=== PATIENT | male | born 1955 | race Caucasian/White ===

== ENCOUNTER 2018-07-01 09:13 | Observation (INO) | payer BC ==
[2018-06-30 16:13] LABS: BASOPHILS # (AUTO) 0.1 (0.0-0.1); BASOPHILS % 0.5 % (0.0-1.0); EOSINOPHILS # (AUTO) 0.5 (0.0-0.4); EOSINOPHILS % 3.2 % (0.0-6.0); HEMATOCRIT 39.1 % (38.2-49.6); HEMOGLOBIN 13.4 g/dL (14.0-18.0); LYMPHOCYTES # (AUTO) 3.8 (1.0-3.2); LYMPHOCYTES % 26.4 % (18.0-39.1); MEAN CORPUSCULAR HEMOGLOBIN 32.6 pg (28-32); MEAN CORPUSCULAR HGB CONC 34.3 g/dL (31-35); MEAN CORPUSCULAR VOLUME 95.1 fL (81-99); MONOCYTES # (AUTO) 1.4 (0.2-0.8); MONOCYTES % 9.3 % (4.4-11.3); NEUTROPHILS # (AUTO) 8.8 (2.1-6.9); NEUTROPHILS % 60.3 % (38.7-80.0); PLATELET COUNT 332 x10e3/uL (140-360); RED BLOOD COUNT 4.11 x10e6/uL (4.3-5.7)
[2018-06-30 16:30] LABS: ANION GAP 15.6 mmol/L (8-16); BLOOD UREA NITROGEN 16 mg/dL (7-26); BUN/CREATININE RATIO 14 (6-25); CALCIUM 9.9 mg/dL (8.4-10.2); CARBON DIOXIDE 28 mmol/L (22-29); CHLORIDE 101 mmol/L (98-107); CREATININE, SERUM 1.16 mg/dL (0.72-1.25); EST GLOMERULAR FILTRATION RATE > 60 ML/MIN (60-); GLUCOSE 99 mg/dL (74-118); POTASSIUM 4.6 mmol/L (3.5-5.1); SODIUM 140 mmol/L (136-145)
[2018-06-30 16:32] LABS: INR 0.89; PROTHROMBIN TIME 12.9 seconds (11.9-14.5)
[2018-06-30 16:33] LABS: PARTIAL THROMBOPLASTIN TIME 31.5 seconds (23.8-35.5)
--- NOTE | 2018-06-30 16:57 | Diagnostic Imaging Report ---
EXAMINATION: CHEST 2 VIEWS COMPARISON: None FINDINGS: TUBES and LINES: None. LUNGS: Lungs are well inflated. Lungs are clear. There is no evidence of pneumonia or pulmonary edema. PLEURA: No pleural effusion or pneumothorax. HEART AND MEDIASTINUM: The cardiomediastinal silhouette is unremarkable. BONES AND SOFT TISSUES: No acute osseous lesion. Soft tissues are unremarkable. UPPER ABDOMEN: No free air under the diaphragm. IMPRESSION: No acute radiographic abnormality. Signed by: Dr. Paz Noyola MD on 06/30/2018 4:54 PM
[~2018-07-01] VITALS: Ht 167.6 cm; Wt 83.9 kg
[~2018-07-01 09:13] MED LIST: ACETAMINOPHEN 1000 MG/100 ML 100 ML IV ONE; LIDOCAINE HCL (LTA) 4 ML SOLN ONE; MEN'S ONE DAIL1 EACH PO; NORCO 5-325 TA1 EACH PO
--- OUTSIDE RECORDS SUMMARY | 2018-07-01 09:16 | XMS REPORT | Clinical Summary ---
Author Author [facility] Organization [facility] Address Unknown Phone Unavailable Care Team Providers Care Office Administration Name Role Phone Asked, No Pcp PCP Unavailable Allergies No Known Allergies Medications End Date Status Medication Sig Dispensed Refills Start Date Active ranitidine (ZANTAC) 300 0 MG tablet 7 Active zolpidem (AMBIEN) 5 MG TK 1 T PO QHS 3 tablet 7 Active Problems No known active problems Social History Date Tobacco Use Types Packs/Day Years Used Current Every Day Smoker Cigarettes 1 Alcohol Use Drinks/Week oz/Week Comments No Sex Assigned at Date Recorded Not on file Industry Job Start Date Occupation Not on file Not on file Not on file Travel End Travel History Travel Start No recent travel history available. Last Filed Vital Signs Not on file Plan of Treatment Health Maintenance Due Date Last Done Comments COLON CANCER SCREENING 2004 SHINGRIX VACCINE (1 of 2) 2004 ZOSTER VACCINE 2014 INFLUENZA VACCINE 02/17/2018 Results Not on fileafter 06/30/2017 Insurance Payer Benefit Subscriber ID Type Phone Address Plan / Group AETNA AETNA PPO xxxxxxxxxx PPO OPEN CHOICE Advance Directives Patient has advance care planning documents on file. For more information, edmundo morrison contact: [facility] [address] [place] [address]
--- OUTSIDE RECORDS SUMMARY | 2018-07-01 09:16 | XMS REPORT ---
Author Author [facility] Address Unknown Phone Unavailable Care Team Providers Care Tree Tapping Laborer Name Role Phone ALIA BERRY Unavailable Unavailable Problems This patient has no known problems. Allergies, Adverse Reactions, Alerts This patient has no known allergies or adverse reactions. Medications This patient has no known medications. Results Test Description Test Time Test Comments Text Results Atomic Results Result Comments CHEST 2 VIEWS 2018-06-30 16:52:00 [place] [address] Patient Name: CHUCKIE GARCIA MR #: [id number] : 1955 Age/Sex: 62/M Req #: [id number] [facility] Physician: Ordered by: ALIA BERRY MD Report #: [id number] Location: OR Room/Bed: Procedure: [id number] DX/CHEST 2 VIEWS Exam Date: 06/30/18 Exam Time: 1609 REPORT STATUS: Signed EXAMINATION: CHEST 2 VIEWS COMPARISON: None FINDINGS: TUBES and LINES: None. LUNGS: Lungs are well inflated. Lungs are clear. There is no evidence of pneumonia or pulmonary edema. PLEURA: No pleural effusion or pneumothorax. HEART AND MEDIASTINUM: The cardiomediastinal silhouette is unremarkable. BONES AND SOFT TISSUES: No acute osseous lesion. Soft tissues are unremarkable. UPPER ABDOMEN: No free air under the diaphragm. IMPRESSION: No acute radiographic abnormality. Signed by: Dr. Rubina Huitron MD on 06/30/2018 4:54 PM Dictated By: RUBINA HUITRON MD 53 Transcribed By: JOHANN on 06/30/181653 COPY TO: ALIA BERRY MD
[2018-07-01] MEDS ORDERED: CEFAZOLIN SOD 2 GM/D5W 50ML 50 ML IV ONE (09:51)
[2018-07-01] MEDS ORDERED: BACITRACIN 50,000 UNIT VIAL ONE (11:09)
[2018-07-01] MEDS ORDERED: THROMBIN FOR SOLN 5,000 UNIT VIAL ONE (11:09)
[2018-07-01] MEDS ORDERED: BUPIVACAINE 0.5%/EPI 30 ML SDV INJ ONE (11:09)
[2018-07-01] MEDS ORDERED: GELATIN SPONGE 12-7MM ONE (11:09)
[2018-07-01] MEDS ORDERED: CEPACOL SORE THROAT LOZENGES PO PRN (13:45)
[2018-07-01] MEDS ORDERED: ZOLPIDEM TARTRATE 5 MG TAB PO PRN (13:45)
[2018-07-01] MEDS ORDERED: HYDROMORPHONE 2MG/ML 2 MG/ML ML IV PRN (13:45)
[2018-07-01] MEDS ORDERED: ACETAMINOPHEN 325 MG TAB PO PRN (13:45)
[2018-07-01] MEDS ORDERED: PROMETHAZINE HCL (IM) 25 MG/ML VIAL IM PRN (13:45)
[2018-07-01] MEDS ORDERED: ONDANSETRON HCL INJ 2 MG/ML VIAL IV PRN (13:45)
[2018-07-01] MEDS ORDERED: MORPHINE SULFATE 5 MG/ML VIAL IM PRN (13:45)
[2018-07-01] MEDS ORDERED: MAGNESIUM/ALUMINUM/SIMETHICONE 30 ML UDC PO PRN (13:45)
[2018-07-01] MEDS: LACTATED RINGER'S 1,000 ML IV SCH ×2 (13:45→21:54)
[2018-07-01] MEDS ORDERED: HYDROMORPHONE 2MG/ML 2 MG/ML ML ONE (14:21)
[2018-07-01] MEDS ORDERED: MORPHINE SULFATE INJ 10 MG/ML IM PRN (14:30)
[2018-07-01] MEDS: CEFAZOLIN SOD 1 GM/D5W 50ML 50 ML IV SCH ×2 (14:30→21:54)
[2018-07-01] MEDS ORDERED: FENTANYL CITRATE/PF 100MCG/2 ML INJ ONE ×2 (14:40→18:09)
--- NOTE | 2018-07-01 14:58 | Operative Report ---
DATE OF PROCEDURE: July 01, 2018 PREOPERATIVE DIAGNOSIS: C5-C6 and C6-C7 spondylosis and chronic disk herniations with radiculopathy, M50.120. POSTOPERATIVE DIAGNOSIS: C5-C6 and C6-C7 spondylosis and chronic disk herniations with radiculopathy, M50.120. PROCEDURES: 1. C5-C6 anterior cervical diskectomy and microsurgical osteophyte resection and allograft fusion, 27747 2. C6-C7 anterior cervical diskectomy and microsurgical osteophyte resection and allograft fusion, 36807. 3. Preparation of tricortical iliac crest allograft, 17701. 4. C5-C6 and C6-C7 anterior cervical plating with Synthes CSLP plate, 45512. ANESTHESIA: General. INDICATIONS: The patient is a 62-year-old man who presents with C5-C6 and C6-C7 spondylosis and chronic disk herniations symptomatic with cervical radiculopathy refractory to extensive conservative treatment. He was taken to operating room for 2 level anterior cervical decompression fusion. PROCEDURE: After induction of anesthesia, the patient was placed on the operating table in the supine position. The right side of the neck was prepped and draped in sterile fashion. The fluoroscopic C-arm was positioned cross-table lateral orientation. A transverse incision was created right side of the neck superimposed on the C6 vertebral body as determined fluoroscopy. The platysma was divided in line with the incision. The subplatysmal dissection was carried out. An avascular plane of dissection was developed medial to sternocleidomastoid muscle and was followed medial to the carotid sheath to the anterior border the cervical spine. The deep cervical fascia was opened. The esophagus was retracted to the left. The attachments of longus coli muscles to the anterior lateral aspects of vertebral bodies of C5-C6 and C7 were divided. The anterior longitudinal ligament was resected. Sawyer posts were inserted into C5 and C7. The Sawyer distractor was used to distract both disk spaces simultaneously. The anterior annuli of disks were incised with a number 11 blade. The contents of both disks were thoroughly evacuated with angled curets and pituitary rongeurs. The posterior osteophytes were meticulously drilled with a 2 mm cutting bur on a high-speed drill until they were completely removed. The posterior annulus of the herniated disk material and posterior longitudinal ligament were resected layer by layer until the dura was fully exposed and decompressed. The medial aspects of the uncinate processes were resected bilaterally to further expose and decompress the origins of the corresponding nerve roots. After satisfactory decompression had been achieved, the endplates were prepared for fusion. Two pieces of tricortical iliac crest allograft were cut to size and shapes of the disk spaces and were inserted into the disk spaces under distraction of fluoroscopic guidance. Distraction was released. The distraction posts were removed. A Synthes CSLP variable type anterior cervical plate measuring 34 mm was then selected and was affixed to vertebral bodies of C5-C6 and C7 with 3 pairs of 14 x 4.35 mm screws. All screw holes were drilled and tapped under lateral fluoroscopic guidance. All screws were locked with the appropriate locking screws. An excellent construct was obtained. The wound was copiously irrigated with Bacitracin solution. Meticulous hemostasis was secured. Retractor was removed. The platysma was closed with 3-0 Vicryl sutures. The skin was closed with 4-0 Monocryl sutures in subcuticular fashion. Steri-strips and dressing were applied. The patient was awakened, extubated and taken to the postanesthesia care unit in stable condition. No intraoperative complications were encountered. Estimated blood loss was 20 mL. Job#: [id number]
[2018-07-01] MEDS ORDERED: MORPHINE SULFATE INJ 4 MG/ML INJ ONE (15:24)
[2018-07-01] MEDS: CARISOPRODOL 350 MG TAB PO PRN ×3 (16:09→21:56)
[2018-07-01] MEDS ORDERED: SEVOFLURANE INHAL SOLN 250 ML PEN BTL ONE (18:09)
[2018-07-01] MEDS ORDERED: ONDANSETRON HCL INJ 2 MG/ML VIAL ONE (18:09)
[2018-07-01] MEDS ORDERED: PROPOFOL IV EMULSION 10 MG/ML 20 ML VIAL ONE (18:09)
[2018-07-01] MEDS ORDERED: LIDOCAINE HCL 2% LOCAL INJ 5 ML SDV VIAL INJ ONE (18:09)
[2018-07-01] MEDS ORDERED: DEXAMETHASONE SOD PHOS INJ 4 MG/ML VIAL ONE (18:09)
[2018-07-01] MEDS ORDERED: MIDAZOLAM HCL 2 MG/2 ML VIAL ONE (18:09)
[2018-07-01 18:15] VITALS: BP 112/59
[2018-07-01 18:31] VITALS: BP 121/64
--- OUTSIDE RECORDS SUMMARY | 2018-07-01 18:52 | XMS REPORT | Clinical Summary ---
Author Author [facility] Organization [facility] Address Unknown Phone Unavailable Care Team Providers Care Bottle Inspector Name Role Phone Asked, No Pcp PCP [...] Last Done Comments COLON CANCER SCREENING 2004 SHINGLES VACCINES (1 of 2004 2) ZOSTER VACCINE 2014 INFLUENZA VACCINE 02/17/2018 Results Not on fileafter 06/30/2017 Insurance Payer Benefit Subscriber ID Type Phone Address Plan / Group AETNA AETNA PPO xxxxxxxxxx PPO OPEN CHOICE Advance Directives Patient has advance care planning documents on file. For more information, edmundo morrison contact: [facility] [address] [address]
[2018-07-01 20:00] VITALS: BP 109/59
[2018-07-01] MEDS: OXYCODONE/ACETAMINOPHEN 5-325 1 EACH TABLET PO PRN (21:55)
[2018-07-02] VITALS: BP 97/55
[2018-07-02 01:54] VITALS: BP 97/55
[2018-07-02] MEDS: CARISOPRODOL 350 MG TAB PO PRN (03:41)
[2018-07-02 04:00] VITALS: BP 103/59
[2018-07-02] MEDS: LACTATED RINGER'S 1,000 ML IV SCH (05:38)
[2018-07-02] MEDS: CEFAZOLIN SOD 1 GM/D5W 50ML 50 ML IV SCH (05:39)
[2018-07-02] MEDS: OXYCODONE/ACETAMINOPHEN 5-325 1 EACH TABLET PO PRN (06:45)
--- NOTE | 2018-07-02 06:47 | Diagnostic Imaging Report ---
Cervical Spine, 2 views HISTORY: Status post surgery. COMPARISON: None. FINDINGS: Limited sensitivity for detection of subtle fractures and ligamentous abnormalities. On the lateral view, the cervical spine is visualized from the skull base to C7. The alignment is normal. Anterior cervical fusion of C5-C7. Prevertebral and neck soft tissue swelling likely related to recent surgery. Mild subcutaneous emphysema in the right neck. No acute displaced fracture involving the visualized cervical spine. Disc Spaces and Uncovertebral Joints: Unremarkable of the non-fused segments. Facets: The facet joints are unremarkable. IMPRESSION: Postoperative changes related to anterior cervical fusion of C5-C7. Signed by: DR. Orlin Martinez MD on 07/02/2018 6:43 AM
[2018-07-02] MEDS ORDERED: NORCO 7.5-3251 EACH PO (07:45)
[2018-07-02 07:55] VITALS: BP 120/57
[2018-07-02 07:56] VITALS: BP 120/57
== END 2018-07-02 08:17 | disposition home or self-care (01) ==
LOC: OR 09:13 → MED/SURG 18:49
PROVIDERS: ADMIT Neurological Surgery; ATTEND Neurological Surgery
DX: M50.122 Cervical disc disorder at C5-C6 level with radiculopathy (principal); M47.22 Other spondylosis with radiculopathy, cervical region; E78.5 Hyperlipidemia, unspecified; K22.5 Diverticulum of esophagus, acquired; Z01.810 Encounter for preprocedural cardiovascular examination; Z01.812 Encounter for preprocedural laboratory examination; Z01.811 Encounter for preprocedural respiratory examination
CPT/HCPCS: 20931; 22551; 22552; 22845; 36415; 71046; 72040; 77003; 80048; 85025; 85610; 85730; 86850; 86900; 88304; 93005; C1713 ×4; C1763; G0378 ×2; J0131; J0690 ×3; J1100; J1170; J2001; J2250; J2270; J2405; J2704